=== PATIENT | female | born 1960 | race Caucasian/White ===

== ENCOUNTER 2017-03-13 10:25 | Inpatient (IN) | payer OTHER, MEDICAID ==
[~2017-03-13] VITALS: Ht 167.6 cm; Wt 73.0 kg
[2017-03-13] MEDS ORDERED: WARF5TAB71 (10:50)
[2017-03-13] MEDS ORDERED: DOCU-137 (10:50)
[2017-03-13] MEDS ORDERED: ALPR-140 (10:50)
[2017-03-13] MEDS ORDERED: LISI10TA6 (10:50)
[2017-03-13] MEDS ORDERED: WARF3TAB22 (10:50)
[2017-03-13] MEDS ORDERED: WARF7.5T20 (10:50)
[2017-03-13 11:30] LABS: Basophils # (auto) 0 uL; Basophils % (auto) 0.4 % (0.0-2.0); DEFINITIVE VIEW TRANSMISSION; Eosinophils # (auto) 0.2 uL; Eosinophils % (auto) 2.1 % (0.0-7.0); Hematocrit 30.7 % (36.0-46.0); Hemoglobin 9.9 g/dL (12.2-16.2); Lymphocytes # (auto) 1.1 uL; Mean Corpuscular Hemoglobin 26.6 pg (28.0-32.0); Mean Corpuscular Hgb Conc. 32.3 g/dL (32.0-36.0); Mean Corpuscular Volume 82.5 fL (80.0-100.0); Mean Platelet Volume 10.4 fL (7.4-10.4); Monocytes # (auto) 0.7 uL; Monocytes % (auto) 7.7 % (0.0-12.0); Neutrophils # (auto) 6.9 uL; Neutrophils % (auto) 77.8 % (37.0-80.0); Platelet Count (auto) 263 10^3/uL (140-450); Red Cell Distribution Width 17.1 % (11.6-16.0); White Blood Cell 8.9 10^3/uL (4.4-10.8)
[2017-03-13 11:44] LABS: Albumin 3.2 g/dL (3.4-5.0); Alkaline Phosphatase 111 U/L (45-117); Anion Gap 9 (5-15); Aspartate Aminotransferase 17 U/L (15-37); BUN/Creatinine Ratio 10.3; Bilirubin, Total 1.2 mg/dL (0.2-1.0); Blood Urea Nitrogen 11 mg/dL (7-18); Calcium 8.6 mg/dL (8.5-10.1); Carbon Dioxide 25 mmol/L (21-32); Chloride 107 mmol/L (98-107); GFR African American 68 mL/min; GFR Non-African American 57 mL/min; Glucose 322 mg/dL (74-106); Magnesium 1.9 mg/dL (1.6-2.6); Potassium 3.6 mmol/L (3.5-5.1); Sodium 141 mmol/L (136-145); Total Protein 6.7 g/dL (6.4-8.2)
[2017-03-13] MEDS ORDERED: SODIUM CHLORIDE 0.9% 1,000 ML IV ONE ×2 (13:00→14:30)
[2017-03-13] MEDS ORDERED: InsuLIN REG 1unit/0.01ml Soln (100units/ml) SC ONE (14:30)
[2017-03-13] MEDS ORDERED: ACETAMINOPHEN 500 MG TAB PO PRN (14:45)
[2017-03-13] MEDS ORDERED: LORazepam 0.5 MG TAB PO PRN (14:45)
[2017-03-13] MEDS ORDERED: LEVOFLOXACIN 500MG 100 ML IV ONE (14:45)
[2017-03-13] MEDS ORDERED: ALBUTEROL SULF 2.5 MG/0.5ML(0.5%) NEB SOLN NEB PRN (14:45)
[2017-03-13] MEDS ORDERED: LACTULOSE 20Gm/30ML SOLN PO PRN (14:45)
[2017-03-13] MEDS ORDERED: MORPHINE SULF INJ 2 MG/ML SYRINGE 1ML IV PRN (14:45)
[2017-03-13] MEDS ORDERED: NITROGLYCERIN 0.4 MG SL TAB SL PRN (14:45)
[2017-03-13] MEDS ORDERED: PROCHLORPERAZINE EDISYLATE 5 MG/ML 2ML VIAL IV PRN (14:45)
[2017-03-13] MEDS ORDERED: TEMAZEPAM 15 MG CAP PO PRN (14:45)
[2017-03-13] MEDS ORDERED: DEXTROSE (50%) 50ML SYRG IV PRN (14:45)
[2017-03-13 14:53] LABS: Urine Color Yellow (Yellow); Urine Hyaline Cast FEW /lpf (0 - 2); Urine Ketone Negative (Negative); Urine Mucus FEW (None Seen); Urine Nitrite Negative (Negative); Urine RBC 11 /hpf (0 - 4); Urine Squamous Epithelial Cell MOD /hpf (<5); Urine pH 6.5 (5.0-8.0)
[2017-03-13 15:06] LABS: Urine Glucose 4+ mg/dL (Normal)
[2017-03-13 15:07] LABS: Urine Bilirubin POSITIVE (Negative); Urine Blood 1+ /uL (Negative)
[2017-03-13] MEDS ORDERED: PANTOPRAZOLE 40 MG TAB PO ONE (15:30)
[2017-03-13] MEDS ORDERED: CARVEDILOL 3.125 MG TAB PO ONE (15:30)
[2017-03-13] MEDS ORDERED: POTASSIUM CHL 20 Meq TABLET PO ONE (15:30)
[2017-03-13] MEDS ORDERED: ENOXAPARIN SOD 40 MG/0.4 ML SYRINGE SC ONE (15:30)
[2017-03-13] MEDS ORDERED: ENALAPRIL MALEATE 2.5 MG TAB PO ONE (15:30)
[2017-03-13] MEDS ORDERED: ASPirin 81 mg TAB PO ONE (15:30)
[2017-03-13] MEDS ORDERED: NITROGLYCERIN 0.2MG/HR TOPICAL PATCH TD ONE (15:30)
[2017-03-13] MEDS ORDERED: FUROSEMIDE 40 MG/4 ML VIAL IV ONE (15:30)
[2017-03-13 15:44] LABS: Temperature: 23.4 C (20.0-25.0)
[2017-03-13 16:13] LABS: B-Type Natriuretic Peptide 1647.5 pg/mL (0-100); Temperature: 23.4 C (20.0-25.0)
[2017-03-13] MEDS: ACCU-CHEK COMFORT CURVE STRIP VI SCH ×2 (16:20→20:47)
[2017-03-13] MEDS: InsuLIN REG 1unit/0.01ml Soln (100units/ml) SC SCH ×2 (16:51→20:47)
[2017-03-13] MEDS: IPRATROPIUM BROM 0.5 MG/2.5ML INH SOL NEB SCH (18:15)
[2017-03-13] MEDS: ALBUTEROL SULF 2.5 MG/0.5ML(0.5%) NEB SOLN NEB SCH (18:15)
[2017-03-13] MEDS ORDERED: DOXYCYCLINE HYC 100MG/250ML 250 ML IV SCH (19:00)
[2017-03-13] MEDS ORDERED: cefTRIAXone 1GM/50ML D5W 50 ML IV ONE (19:00)
[2017-03-13 20:30] VITALS: BP 189/102
[2017-03-13] MEDS: DOXYCYCLINE HYC 100MG/250ML 250 ML IV SCH (20:46)
[2017-03-13] MEDS: CARVEDILOL 3.125 MG TAB PO SCH (21:53)
[2017-03-13] MEDS ORDERED: CLINDAMYCIN 600MG IV 50 ML IV SCH (22:00)
[2017-03-13] MEDS: ATORVASTATIN 20 MG TAB PO SCH (22:00)
[2017-03-13 22:31] LABS: INR 1.96 (0.9-1.15); Prothrombin Time 21.2 sec (9.37-12.3)
[2017-03-13] MEDS ORDERED: WARFARIN SODIUM 5 MG TAB PO ONE (22:45)
[2017-03-13] MEDS ORDERED: LABETALOL HCL 5 MG/ML ML 20ML VIAL IV ONE (23:33)
[2017-03-13] MEDS: LABETALOL HCL 5 MG/ML 4ML SYRINGE IV PRN (23:50)
[2017-03-14] VITALS (62 sets, daily range): BP systolic 87–230; BP diastolic 51–130
[2017-03-14] MEDS: IPRATROPIUM BROM 0.5 MG/2.5ML INH SOL NEB SCH ×4 (00:05→18:47)
[2017-03-14] MEDS: ALBUTEROL SULF 2.5 MG/0.5ML(0.5%) NEB SOLN NEB SCH ×4 (00:05→18:47)
[2017-03-14] MEDS: ACCU-CHEK COMFORT CURVE STRIP VI SCH ×6 (00:38→20:00)
[2017-03-14] MEDS: InsuLIN REG 1unit/0.01ml Soln (100units/ml) SC SCH ×6 (00:38→20:00)
[2017-03-14] MEDS ORDERED: ENALAPRILAT 1.25 MG/ML-1ML VIAL IV ONE ×2 (02:44→02:45)
[2017-03-14] MEDS ORDERED: FUROSEMIDE 40 MG/4 ML VIAL IV ONE ×3 (02:45→12:45)
[2017-03-14] MEDS ORDERED: FUROSEMIDE 40 MG/4 ML VIAL ONE ×2 (02:45→04:13)
[2017-03-14] MEDS: NITROGLYCERIN 50MG/250ML 250 ML IV SCH ×4 (03:50→17:58)
[2017-03-14] MEDS: LABETALOL HCL 5 MG/ML 4ML SYRINGE IV PRN (04:04)
[2017-03-14] MEDS: DOXYCYCLINE HYC 100MG/250ML 250 ML IV SCH (08:24)
[2017-03-14] MEDS ORDERED: cefTRIAXone 1GM/50ML D5W 50 ML IV SCH (09:00)
[2017-03-14 09:04] LABS: DEFINITIVE VIEW TRANSMISSION; Hematocrit 39.6 % (36.0-46.0); Hemoglobin 12.7 g/dL (12.2-16.2); Mean Corpuscular Hemoglobin 26.6 pg (28.0-32.0); Mean Corpuscular Hgb Conc. 32.1 g/dL (32.0-36.0); Mean Corpuscular Volume 82.9 fL (80.0-100.0); Mean Platelet Volume 10.4 fL (7.4-10.4); Platelet Count (auto) 423 10^3/uL (140-450); Red Cell Distribution Width 17.1 % (11.6-16.0); SUSPECT VIEW TRANSMISSION; White Blood Cell 25.9 10^3/uL (4.4-10.8)
[2017-03-14 09:09] LABS: Metamyelocytes % 0; Myelocytes % 0; Promyelocytes % 0; Reactive Lymphocytes 0
[2017-03-14 09:19] LABS: INR 2.67 (0.9-1.15); Prothrombin Time 28.8 sec (9.37-12.3)
[2017-03-14 09:35] LABS: Albumin 3.1 g/dL (3.4-5.0); Calcium 8.4 mg/dL (8.5-10.1); Potassium 3.5 mmol/L (3.5-5.1)
[2017-03-14 09:51] LABS: Bilirubin, Total 0.9 mg/dL (0.2-1.0); Total Protein 7.5 g/dL (6.4-8.2)
[2017-03-14] MEDS: ASPirin 81 mg TAB PO SCH (10:00)
[2017-03-14] MEDS ORDERED: ENOXAPARIN SOD 40 MG/0.4 ML SYRINGE SC SCH (10:00)
[2017-03-14] MEDS: PANTOPRAZOLE 40 MG TAB PO SCH (10:00)
[2017-03-14] MEDS ORDERED: FUROSEMIDE 40 MG/4 ML VIAL IV SCH (10:00)
[2017-03-14] MEDS: ENALAPRIL MALEATE 10 MG TAB PO SCH ×2 (10:00→22:00)
[2017-03-14] MEDS: CARVEDILOL 3.125 MG TAB PO SCH ×2 (10:00→22:00)
[2017-03-14] MEDS ORDERED: LEVOFLOXACIN 500MG 100 ML IV SCH (10:00)
[2017-03-14] MEDS ORDERED: ENALAPRIL MALEATE 2.5 MG TAB PO SCH (10:00)
[2017-03-14] MEDS ORDERED: InsuLIN REG 1unit/0.01ml Soln (100units/ml) SC SCH (10:00)
[2017-03-14] MEDS: POTASSIUM CHL 20 Meq TABLET PO SCH (10:00)
[2017-03-14 10:23] LABS: Anisocytosis Slight; Hypochromia Slight; Platelet Estimate Adequate; Schistocytes FEW
[2017-03-14] MEDS: NITROGLYCERIN 0.2MG/HR TOPICAL PATCH TD SCH (10:46)
[2017-03-14] MEDS: PIPERACILLIN-TAZOB 3.375GM 100 ML IV SCH ×2 (12:24→17:55)
[2017-03-14 13:54] LABS: Lactic Acid w/Reflex 2.1 mmol/L (0.4-2.0)
[2017-03-14 14:20] LABS: REFLEX LACTIC ACID YES OR NO YES
[2017-03-14] MEDS ORDERED: WARFARIN SODIUM 1 MG TAB PO ONE (17:00)
[2017-03-14] MEDS: FUROSEMIDE 20 MG/2 ML VIAL IV SCH (17:54)
[2017-03-14] MEDS: LABETALOL HCL 5 MG/ML 4ML SYRINGE IV SCH (18:00)
[2017-03-14] MEDS: hydrALAZINE HCL 20 MG/ML VL IV SCH (18:00)
[2017-03-14] MEDS: ATORVASTATIN 20 MG TAB PO SCH (22:00)
[2017-03-14] MEDS: LINEZOLID 600MG/300ML 300 ML IV SCH (23:40)
[2017-03-15] VITALS (85 sets, daily range): BP systolic 77–152; BP diastolic 32–90
[2017-03-15] MEDS: ALBUTEROL SULF 2.5 MG/0.5ML(0.5%) NEB SOLN NEB SCH ×4 (00:09→21:50)
[2017-03-15] MEDS: IPRATROPIUM BROM 0.5 MG/2.5ML INH SOL NEB SCH ×4 (00:09→21:50)
[2017-03-15] MEDS: LABETALOL HCL 5 MG/ML 4ML SYRINGE IV SCH ×4 (00:23→18:35)
[2017-03-15] MEDS: ACCU-CHEK COMFORT CURVE STRIP VI SCH ×6 (00:23→20:06)
[2017-03-15] MEDS: InsuLIN REG 1unit/0.01ml Soln (100units/ml) SC SCH ×6 (00:23→20:07)
[2017-03-15] MEDS: PIPERACILLIN-TAZOB 3.375GM 100 ML IV SCH ×4 (02:00→19:53)
[2017-03-15] MEDS: hydrALAZINE HCL 20 MG/ML VL IV SCH ×4 (02:00→18:36)
[2017-03-15 04:03] LABS: Basophils # (auto) 0 uL; DEFINITIVE VIEW TRANSMISSION; Eosinophils # (auto) 0 uL; Hematocrit 35.8 % (36.0-46.0); Hemoglobin 11.7 g/dL (12.2-16.2); Lymphocytes # (auto) 1.1 uL; Lymphocytes % (auto) 5.6 % (10.0-50.0); Mean Corpuscular Hemoglobin 26.6 pg (28.0-32.0); Mean Corpuscular Hgb Conc. 32.7 g/dL (32.0-36.0); Mean Corpuscular Volume 81.3 fL (80.0-100.0); Mean Platelet Volume 10.2 fL (7.4-10.4); Monocytes # (auto) 1.2 uL; Monocytes % (auto) 6.1 % (0.0-12.0); Neutrophils # (auto) 16.7 uL; Neutrophils % (auto) 88.3 % (37.0-80.0); Platelet Count (auto) 329 10^3/uL (140-450); Red Cell Distribution Width 17.5 % (11.6-16.0); SUSPECT VIEW TRANSMISSION; White Blood Cell 18.9 10^3/uL (4.4-10.8)
[2017-03-15 04:17] LABS: Magnesium 1.3 mg/dL (1.6-2.6)
[2017-03-15 04:21] LABS: Albumin 2.8 g/dL (3.4-5.0); BUN/Creatinine Ratio 15.1; Total Protein 6.5 g/dL (6.4-8.2)
[2017-03-15 04:33] LABS: Partial Thromboplastin Time 36.4 sec (22.64-33.71)
[2017-03-15 04:34] LABS: INR 2.29 (0.9-1.15); Prothrombin Time 24.7 sec (9.37-12.3)
[2017-03-15] MEDS: MAGNESIUM SULFATE 1GM/100ML 100 ML IV SCH ×3 (06:34→10:00)
[2017-03-15] MEDS: POTASSIUM CHL 20MEQ/100ML 100 ML IV SCH ×2 (06:34→08:31)
[2017-03-15] MEDS: FUROSEMIDE 20 MG/2 ML VIAL IV SCH ×2 (06:35→18:25)
[2017-03-15] MEDS: PANTOPRAZOLE 40 MG TAB PO SCH (10:00)
[2017-03-15] MEDS ORDERED: PHENYTOIN IV DILANTIN 1,000 MG in SODIUM CHL 0.9% 250 ML IV ONE (10:00)
[2017-03-15] MEDS: POTASSIUM CHL 20 Meq TABLET PO SCH (10:00)
[2017-03-15] MEDS: ASPirin 81 mg TAB PO SCH (10:00)
[2017-03-15] MEDS: ENALAPRIL MALEATE 10 MG TAB PO SCH (10:00)
[2017-03-15] MEDS: CARVEDILOL 3.125 MG TAB PO SCH ×2 (10:00→22:00)
[2017-03-15] MEDS: NITROGLYCERIN 0.2MG/HR TOPICAL PATCH TD SCH (11:28)
[2017-03-15] MEDS: LINEZOLID 600MG/300ML 300 ML IV SCH ×2 (11:30→22:58)
[2017-03-15] MEDS ORDERED: PANTOPRAZOLE SODIUM 40 MG/10 ML VIAL IV ONE (12:30)
[2017-03-15] MEDS ORDERED: FLUCONAZOLE 200MG/100ML 100 ML IV ONE (12:30)
[2017-03-15] MEDS ORDERED: PHENYTOIN SODIUM 50 MG/ML 2ML VIAL IV SCH (14:00)
[2017-03-15] MEDS ORDERED: WARFARIN SODIUM 1 MG TAB PO ONE (17:00)
[2017-03-15 17:39] LABS: Magnesium 2.6 mg/dL (1.6-2.6); Potassium 3.2 mmol/L (3.5-5.1)
[2017-03-15] MEDS: Boost Glucose Control 8 Ounces PO SCH (18:00)
[2017-03-15] MEDS: PHENYTOIN SODIUM 50 MG/ML 2ML VIAL IV SCH (19:53)
[2017-03-15] MEDS: ATORVASTATIN 20 MG TAB PO SCH (22:00)
[2017-03-16] VITALS (29 sets, daily range): BP systolic 104–147; BP diastolic 41–99
[2017-03-16] MEDS: LABETALOL HCL 5 MG/ML 4ML SYRINGE IV SCH ×6 (00:13→17:54)
[2017-03-16] MEDS: ACCU-CHEK COMFORT CURVE STRIP VI SCH ×6 (00:13→22:07)
[2017-03-16] MEDS: hydrALAZINE HCL 20 MG/ML VL IV SCH ×4 (00:13→17:54)
[2017-03-16] MEDS: InsuLIN REG 1unit/0.01ml Soln (100units/ml) SC SCH ×6 (00:14→21:34)
[2017-03-16] MEDS: PIPERACILLIN-TAZOB 3.375GM 100 ML IV SCH ×3 (01:15→11:36)
[2017-03-16] MEDS: ALBUTEROL SULF 2.5 MG/0.5ML(0.5%) NEB SOLN NEB SCH ×4 (01:17→19:16)
[2017-03-16] MEDS: IPRATROPIUM BROM 0.5 MG/2.5ML INH SOL NEB SCH ×4 (01:17→19:16)
[2017-03-16] MEDS: NITROGLYCERIN 50MG/250ML 250 ML IV SCH (02:45)
[2017-03-16] MEDS: PHENYTOIN SODIUM 50 MG/ML 2ML VIAL IV SCH ×3 (03:44→20:00)
[2017-03-16 04:31] LABS: Basophils # (auto) 0 uL; Basophils % (auto) 0.1 % (0.0-2.0); Eosinophils # (auto) 0 uL; Eosinophils % (auto) 0.1 % (0.0-7.0); Hemoglobin 11.6 g/dL (12.2-16.2); Lymphocytes # (auto) 1.2 uL; Lymphocytes % (auto) 6.5 % (10.0-50.0); Mean Corpuscular Hemoglobin 27.2 pg (28.0-32.0); Mean Corpuscular Hgb Conc. 33.2 g/dL (32.0-36.0); Mean Corpuscular Volume 81.9 fL (80.0-100.0); Mean Platelet Volume 10.8 fL (7.4-10.4); Monocytes # (auto) 1.5 uL; Monocytes % (auto) 8.1 % (0.0-12.0); Neutrophils # (auto) 16.2 uL; Neutrophils % (auto) 85.2 % (37.0-80.0); Platelet Count (auto) 332 10^3/uL (140-450); Red Cell Distribution Width 17.7 % (11.6-16.0); SUSPECT VIEW TRANSMISSION
[2017-03-16 04:34] LABS: Albumin 2.6 g/dL (3.4-5.0); BUN/Creatinine Ratio 14.5; Bilirubin, Total 0.7 mg/dL (0.2-1.0); Calcium 8.1 mg/dL (8.5-10.1); Magnesium 2.3 mg/dL (1.6-2.6); Total Protein 6.3 g/dL (6.4-8.2)
[2017-03-16 04:38] LABS: Potassium 2.4 mmol/L (3.5-5.1)
[2017-03-16 04:44] LABS: INR 2.55 (0.9-1.15); Prothrombin Time 27.5 sec (9.37-12.3)
[2017-03-16] MEDS: FUROSEMIDE 20 MG/2 ML VIAL IV SCH (05:10)
[2017-03-16] MEDS: POTASSIUM CHL 20MEQ/100ML 100 ML IV SCH ×3 (06:00→09:55)
[2017-03-16] MEDS: Boost Glucose Control 8 Ounces PO SCH ×2 (08:00→17:59)
[2017-03-16] MEDS ORDERED: InsuLIN REG 1unit/0.01ml Soln (100units/ml) ONE (08:00)
[2017-03-16] MEDS ORDERED: DEXTROSE (50%) 50ML SYRG IV PRN (09:15)
[2017-03-16] MEDS: PANTOPRAZOLE SODIUM 40 MG/10 ML VIAL IV SCH (09:55)
[2017-03-16] MEDS: LINEZOLID 600MG/300ML 300 ML IV SCH ×2 (09:55→21:23)
[2017-03-16] MEDS: FLUCONAZOLE 200MG/100ML 100 ML IV SCH (09:55)
[2017-03-16] MEDS: CARVEDILOL 3.125 MG TAB PO SCH ×2 (10:00→22:00)
[2017-03-16] MEDS: ASPirin 81 mg TAB PO SCH (10:00)
[2017-03-16] MEDS: NITROGLYCERIN 0.2MG/HR TOPICAL PATCH TD SCH (10:07)
[2017-03-16] MEDS: D5W/SOD CHL 0.45%/KCL 20MEQ 1,000 ML IV SCH (16:54)
[2017-03-16] MEDS: PIPERACILLIN-TAZOB 2.25GM 50 ML IV SCH (18:21)
[2017-03-16 19:11] LABS: Acetaminophen < 2.0 ug/mL (10-30); Salicylate 1.9 mg/dL (2.8-20.0)
[2017-03-16] MEDS: ATORVASTATIN 20 MG TAB PO SCH (22:00)
[2017-03-17] VITALS (17 sets, daily range): BP systolic 109–153; BP diastolic 52–78
[2017-03-17] MEDS: hydrALAZINE HCL 20 MG/ML VL IV SCH ×4 (00:12→18:30)
[2017-03-17] MEDS: LABETALOL HCL 5 MG/ML 4ML SYRINGE IV SCH ×4 (00:13→18:29)
[2017-03-17] MEDS: PIPERACILLIN-TAZOB 2.25GM 50 ML IV SCH ×4 (00:13→18:31)
[2017-03-17] MEDS: ALBUTEROL SULF 2.5 MG/0.5ML(0.5%) NEB SOLN NEB SCH ×4 (00:52→18:52)
[2017-03-17] MEDS: IPRATROPIUM BROM 0.5 MG/2.5ML INH SOL NEB SCH ×4 (00:52→18:53)
[2017-03-17] MEDS: PHENYTOIN SODIUM 50 MG/ML 2ML VIAL IV SCH ×3 (04:00→20:15)
[2017-03-17 04:25] LABS: BUN/Creatinine Ratio 12.2; Basophils # (auto) 0 uL; Eosinophils # (auto) 0.2 uL; Eosinophils % (auto) 1.3 % (0.0-7.0); Hematocrit 35.9 % (36.0-46.0); Hemoglobin 11.7 g/dL (12.2-16.2); Lymphocytes # (auto) 1.3 uL; Lymphocytes % (auto) 9.8 % (10.0-50.0); Mean Corpuscular Hgb Conc. 32.5 g/dL (32.0-36.0); Mean Corpuscular Volume 83.2 fL (80.0-100.0); Mean Platelet Volume 10.6 fL (7.4-10.4); Monocytes # (auto) 1.4 uL; Monocytes % (auto) 10.6 % (0.0-12.0); Neutrophils # (auto) 10.5 uL; Neutrophils % (auto) 78.3 % (37.0-80.0); Phosphorus 2.1 mg/dL (2.5-4.90); Platelet Count (auto) 283 10^3/uL (140-450); Potassium 3.2 mmol/L (3.5-5.1); Red Cell Distribution Width 18.2 % (11.6-16.0); White Blood Cell 13.4 10^3/uL (4.4-10.8)
[2017-03-17 04:31] LABS: Partial Thromboplastin Time 35.8 sec (22.64-33.71)
[2017-03-17 04:50] LABS: INR 4.31 (0.9-1.15); Prothrombin Time 46.5 sec (9.37-12.3)
[2017-03-17] MEDS: D5W/SOD CHL 0.45%/KCL 20MEQ 1,000 ML IV SCH ×2 (04:58→16:45)
[2017-03-17] MEDS: ACCU-CHEK COMFORT CURVE STRIP VI SCH ×4 (06:48→22:49)
[2017-03-17] MEDS: InsuLIN REG 1unit/0.01ml Soln (100units/ml) SC SCH ×4 (06:48→22:53)
[2017-03-17] MEDS: Boost Glucose Control 8 Ounces PO SCH ×2 (08:00→18:00)
[2017-03-17] MEDS ORDERED: POTASSIUM PHOSPHATE 44 MEQ in SODIUM CHL 0.9% 250 ML IV ONE (10:00)
[2017-03-17] MEDS: PANTOPRAZOLE SODIUM 40 MG/10 ML VIAL IV SCH (10:26)
[2017-03-17] MEDS: NITROGLYCERIN 0.2MG/HR TOPICAL PATCH TD SCH (10:27)
[2017-03-17] MEDS: FLUCONAZOLE 200MG/100ML 100 ML IV SCH (10:27)
[2017-03-17] MEDS: ASPirin 81 mg TAB PO SCH (10:33)
[2017-03-17] MEDS: CARVEDILOL 3.125 MG TAB PO SCH ×2 (10:34→22:48)
[2017-03-17] MEDS ORDERED: SODIUM CHL 0.9% IV ONE (11:15)
[2017-03-17] MEDS ORDERED: POTASSIUM CHLORIDE 40 MEQ, LIDOCAINE 1% (LOCAL ANESTH.) 4 ML in SODIUM CHL 0.9% 250 ML IV ONE (11:15)
[2017-03-17] MEDS ORDERED: SODIUM PHOSPHATES IV ONE (11:15)
[2017-03-17] MEDS: LINEZOLID 600MG/300ML 300 ML IV SCH ×2 (11:36→22:48)
[2017-03-17] MEDS ORDERED: DEXTROSE (50%) 50ML SYRG IV PRN (15:15)
[2017-03-17] MEDS: ALBUMIN 25% 100 ML IV SCH ×2 (16:23→21:01)
[2017-03-17] MEDS: HYDROcodone-ACET 5/325MG TAB PO PRN (18:38)
[2017-03-17] MEDS: ATORVASTATIN 20 MG TAB PO SCH (22:49)
[2017-03-18] MEDS: LABETALOL HCL 5 MG/ML 4ML SYRINGE IV SCH ×3 (00:21→12:25)
[2017-03-18] MEDS: hydrALAZINE HCL 20 MG/ML VL IV SCH ×3 (00:22→12:25)
[2017-03-18] MEDS: PIPERACILLIN-TAZOB 2.25GM 50 ML IV SCH ×2 (01:02→06:26)
[2017-03-18] MEDS: HYDROcodone-ACET 5/325MG TAB PO PRN ×3 (01:03→16:41)
[2017-03-18 01:19] VITALS: BP 153/78
[2017-03-18] MEDS: D5W/SOD CHL 0.45%/KCL 20MEQ 1,000 ML IV SCH (03:44)
[2017-03-18] MEDS: PHENYTOIN SODIUM 50 MG/ML 2ML VIAL IV SCH (04:20)
[2017-03-18] MEDS: ALBUMIN 25% 100 ML IV SCH (05:00)
[2017-03-18 05:21] LABS: Basophils # (auto) 0 uL; Basophils % (auto) 0.5 % (0.0-2.0); DEFINITIVE VIEW TRANSMISSION; Eosinophils # (auto) 0.5 uL; Eosinophils % (auto) 5.5 % (0.0-7.0); Hematocrit 32.3 % (36.0-46.0); Hemoglobin 10.4 g/dL (12.2-16.2); Lymphocytes # (auto) 1.5 uL; Lymphocytes % (auto) 16.1 % (10.0-50.0); Mean Corpuscular Hemoglobin 26.8 pg (28.0-32.0); Mean Corpuscular Hgb Conc. 32.4 g/dL (32.0-36.0); Mean Corpuscular Volume 82.8 fL (80.0-100.0); Mean Platelet Volume 10.5 fL (7.4-10.4); Monocytes % (auto) 11.1 % (0.0-12.0); Neutrophils # (auto) 6.1 uL; Neutrophils % (auto) 66.8 % (37.0-80.0); Platelet Count (auto) 273 10^3/uL (140-450); Red Cell Distribution Width 17.7 % (11.6-16.0); White Blood Cell 9.2 10^3/uL (4.4-10.8)
[2017-03-18 05:33] VITALS: BP 144/75
[2017-03-18 05:37] LABS: Partial Thromboplastin Time 39.7 sec (22.64-33.71)
[2017-03-18 05:39] LABS: BUN/Creatinine Ratio 11.7; Calcium 7.9 mg/dL (8.5-10.1); Potassium 3.7 mmol/L (3.5-5.1)
[2017-03-18 05:41] LABS: INR 3.96 (0.9-1.15); Prothrombin Time 42.8 sec (9.37-12.3)
[2017-03-18] MEDS: ACCU-CHEK COMFORT CURVE STRIP VI SCH ×4 (06:27→21:55)
[2017-03-18] MEDS: InsuLIN REG 1unit/0.01ml Soln (100units/ml) SC SCH ×4 (06:40→21:56)
[2017-03-18] MEDS: ALBUTEROL SULF 2.5 MG/0.5ML(0.5%) NEB SOLN NEB SCH ×4 (06:52→18:00)
[2017-03-18] MEDS: IPRATROPIUM BROM 0.5 MG/2.5ML INH SOL NEB SCH ×4 (06:52→18:00)
[2017-03-18] MEDS: Boost Glucose Control 8 Ounces PO SCH ×2 (08:00→18:10)
[2017-03-18 09:00] VITALS: BP 146/77
[2017-03-18] MEDS: FLUCONAZOLE 200MG/100ML 100 ML IV SCH (09:00)
[2017-03-18] MEDS: PANTOPRAZOLE SODIUM 40 MG/10 ML VIAL IV SCH (10:00)
[2017-03-18] MEDS: LINEZOLID 600MG/300ML 300 ML IV SCH (10:35)
[2017-03-18] MEDS: NITROGLYCERIN 0.2MG/HR TOPICAL PATCH TD SCH (10:35)
[2017-03-18] MEDS: ASPirin 81 mg TAB PO SCH (10:35)
[2017-03-18] MEDS: CARVEDILOL 3.125 MG TAB PO SCH ×2 (10:36→21:54)
[2017-03-18] MEDS ORDERED: hydrALAZINE HCL 25 MG TAB PO PRN (12:30)
[2017-03-18] MEDS ORDERED: FLUCONAZOLE 100 MG TAB PO ONE (12:30)
[2017-03-18] MEDS ORDERED: CARVEDILOL 3.125 MG TAB PO ONE (12:30)
[2017-03-18] MEDS: ONDANSETRON HCL 4 MG/2 ML VIAL IV PRN ×2 (12:58→20:19)
[2017-03-18 14:24] VITALS: BP 157/72
[2017-03-18 17:47] VITALS: BP 136/76
[2017-03-18] MEDS ORDERED: hydrALAZINE HCL 25 MG TAB PO SCH (18:00)
[2017-03-18] MEDS: MORPHINE SULF INJ 2 MG/ML SYRINGE 1ML IV PRN (21:10)
[2017-03-18] MEDS: hydrALAZINE HCL 25 MG TAB PO SCH (21:52)
[2017-03-18] MEDS: ATORVASTATIN 20 MG TAB PO SCH (21:54)
[2017-03-18] MEDS: LABETALOL HCL 200 MG TAB PO SCH (21:55)
[2017-03-18] MEDS ORDERED: PHENYTOIN SODIUM 100 MG CAP PO SCH (22:00)
[2017-03-19] MEDS: InsuLIN REG 1unit/0.01ml Soln (100units/ml) SC SCH ×3 (05:37→17:00)
[2017-03-19] MEDS: ACCU-CHEK COMFORT CURVE STRIP VI SCH ×3 (05:38→17:00)
[2017-03-19 06:47] LABS: Basophils # (auto) 0 uL; Basophils % (auto) 0.4 % (0.0-2.0); DEFINITIVE VIEW TRANSMISSION; Eosinophils # (auto) 0.7 uL; Eosinophils % (auto) 9.8 % (0.0-7.0); Hematocrit 32.4 % (36.0-46.0); Hemoglobin 10.5 g/dL (12.2-16.2); Lymphocytes # (auto) 1.3 uL; Lymphocytes % (auto) 17.5 % (10.0-50.0); Mean Corpuscular Hemoglobin 26.7 pg (28.0-32.0); Mean Corpuscular Hgb Conc. 32.3 g/dL (32.0-36.0); Mean Corpuscular Volume 82.6 fL (80.0-100.0); Mean Platelet Volume 10.7 fL (7.4-10.4); Monocytes # (auto) 0.7 uL; Neutrophils # (auto) 4.8 uL; Neutrophils % (auto) 63.3 % (37.0-80.0); Platelet Count (auto) 272 10^3/uL (140-450); Red Cell Distribution Width 18.1 % (11.6-16.0); White Blood Cell 7.6 10^3/uL (4.4-10.8)
[2017-03-19] MEDS: IPRATROPIUM BROM 0.5 MG/2.5ML INH SOL NEB SCH ×3 (06:49→12:00)
[2017-03-19] MEDS: ALBUTEROL SULF 2.5 MG/0.5ML(0.5%) NEB SOLN NEB SCH ×3 (06:49→12:00)
[2017-03-19 07:01] LABS: Partial Thromboplastin Time 33.3 sec (22.64-33.71)
[2017-03-19 07:03] LABS: INR 2.3 (0.9-1.15); Prothrombin Time 24.8 sec (9.37-12.3)
[2017-03-19 07:20] LABS: Bilirubin, Total 0.6 mg/dL (0.2-1.0); Calcium 8.4 mg/dL (8.5-10.1); Potassium 3.6 mmol/L (3.5-5.1); Total Protein 5.9 g/dL (6.4-8.2)
[2017-03-19] MEDS: Boost Glucose Control 8 Ounces PO SCH (08:08)
[2017-03-19] MEDS: MORPHINE SULF INJ 2 MG/ML SYRINGE 1ML IV PRN ×2 (08:40→10:03)
[2017-03-19] MEDS ORDERED: LORazepam 2MG/ML-1ML VIAL IV PRN (09:00)
[2017-03-19 09:12] VITALS: BP 157/70
[2017-03-19] MEDS ORDERED: FLUCONAZOLE 100 MG TAB PO SCH (10:00)
[2017-03-19] MEDS: ASPirin 81 mg TAB PO SCH (10:14)
[2017-03-19] MEDS: hydrALAZINE HCL 25 MG TAB PO SCH (10:14)
[2017-03-19] MEDS: LABETALOL HCL 200 MG TAB PO SCH (10:15)
[2017-03-19] MEDS: CARVEDILOL 3.125 MG TAB PO SCH (10:15)
[2017-03-19] MEDS: HYDROcodone-ACET 5/325MG TAB PO PRN (10:54)
[2017-03-19] MEDS ORDERED: FLUC100T34 PO (12:35)
[2017-03-19] MEDS ORDERED: PHE100C PO (12:35)
[2017-03-19] MEDS ORDERED: CARV6.25 PO (12:35)
[2017-03-19] MEDS ORDERED: ATOR20TA50 PO (12:35)
[2017-03-19] MEDS ORDERED: ASPI81CH43 PO (12:35)
[2017-03-19 12:43] VITALS: BP 137/67
[2017-03-19] MEDS ORDERED: NOR5T PO (13:17)
[2017-03-19] MEDS ORDERED: MET25T PO (13:17)
[2017-03-19] MEDS ORDERED: MORP15TA PO (13:17)
[2017-03-19] MEDS ORDERED: POTA10TA51 PO (13:17)
[2017-03-19] MEDS ORDERED: GABA-494 PO (13:17)
[2017-03-19] MEDS ORDERED: INSDRIP SUBCUT (13:17)
[2017-03-19] MEDS ORDERED: OME20T PO (13:17)
[2017-03-19] MEDS ORDERED: ATOR10TA PO (13:17)
[2017-03-19] MEDS ORDERED: INSUINJ37 SUBCUT (13:20)
[2017-03-19] MEDS ORDERED: LAB200T PO (13:20)
[2017-03-19] MEDS ORDERED: HYDR-2651 PO (13:20)
[2017-03-19] MEDS ORDERED: WARF2TAB49 PO (13:27)
[2017-03-19 16:05] VITALS: BP 137/67
[2017-03-19] MEDS ORDERED: WARFARIN SODIUM 1 MG TAB PO ONE (17:00)
[2017-03-21 08:07] LABS: Vitamin D-2 25-Hydroxy 3.5 ng/mL (.)
== END 2017-03-19 16:55 | disposition home health service (06) | DRG 871 ==
LOC: ER 10:25 → EDBD 10:25 → TELE 10:26 → TELE-WESTW 19:58 → ICU WEST 03-14 03:30 → TELE-WESTW 03-17 16:45
PROVIDERS: ADMIT Internal Medicine; ATTEND Internal Medicine
PROC: 5A09457 Assistance with Respiratory Ventilation, 24-96 Consecutive Hours, Continuous Positive Airway Pressure (ICD-10-PCS; 2017-03-14)
PROC: 4A10X4Z Monitoring of Central Nervous Electrical Activity, External Approach (ICD-10-PCS; principal; 2017-03-16)
DX: A41.9 Sepsis, unspecified organism (principal); G93.41 Metabolic encephalopathy; N17.0 Acute kidney failure with tubular necrosis; I21.4 Non-ST elevation (NSTEMI) myocardial infarction; I50.43 Acute on chronic combined systolic (congestive) and diastolic (congestive) heart failure; N39.0 Urinary tract infection, site not specified; R47.01 Aphasia; I13.0 Hypertensive heart and chronic kidney disease with heart failure and stage 1 through stage 4 chronic kidney disease, or unspecified chronic kidney disease; F05 Delirium due to known physiological condition; F11.20 Opioid dependence, uncomplicated; E11.65 Type 2 diabetes mellitus with hyperglycemia; E11.21 Type 2 diabetes mellitus with diabetic nephropathy; E11.22 Type 2 diabetes mellitus with diabetic chronic kidney disease; D63.8 Anemia in other chronic diseases classified elsewhere; E83.39 Other disorders of phosphorus metabolism; E86.0 Dehydration; E87.5 Hyperkalemia; E87.6 Hypokalemia; F17.210 Nicotine dependence, cigarettes, uncomplicated; G40.409 Other generalized epilepsy and epileptic syndromes, not intractable, without status epilepticus; G89.4 Chronic pain syndrome; M54.5 Low back pain; G93.89 Other specified disorders of brain; I16.0 Hypertensive urgency; I25.10 Atherosclerotic heart disease of native coronary artery without angina pectoris; I35.0 Nonrheumatic aortic (valve) stenosis; F41.9 Anxiety disorder, unspecified; I67.2 Cerebral atherosclerosis; N18.9 Chronic kidney disease, unspecified; Z79.01 Long term (current) use of anticoagulants; Z95.1 Presence of aortocoronary bypass graft; Z95.2 Presence of prosthetic heart valve; Z88.1 Allergy status to other antibiotic agents; Z90.49 Acquired absence of other specified parts of digestive tract; Z79.899 Other long term (current) drug therapy; Z79.82 Long term (current) use of aspirin; Z71.3 Dietary counseling and surveillance
CPT/HCPCS: 36415; 36600; 70450; 71010; 76775; 80048; 80053; 80061; 80185; 80307; 80320; 80329; 81001; 82040; 82140; 82306; 82550; 82570; 82607; 82746; 82805; 82962; 83036; 83605; 83735; 83880; 83970; 84100; 84132; 84156; 84300; 84443; 84484; 85007; 85025; 85027; 85610; 85652; 85730; 86141; 86160; 87040; 87081; 87086; 93005; 93306; 93886; 94640; 94660; 95819; 96360; 96361; 96372; 97001; 97110; 97530; C9113; J0696; J1450; J1815; J1956; J2001; J2405; J2543; J3480; J3490

== ENCOUNTER 2020-06-17 10:12 | Day surgery (SDC) | payer OTHER, MEDICAID ==
[~2020-06-17] VITALS: Ht 167.6 cm; Wt 72.6 kg
[~2020-06-17 10:12] MED LIST: AMLO5TAB15 PO; ATOR40TA52 PO; CLOB0.055 TOP; GABA100C9 PO; HYDR-4296 PO; HYDR-531 PO; HYDR25TA4 PO; INSU1INJ19 SC; METO-159 PO; MORP10CA10 PO; OMEP20TA PO; PHE100C PO; WARF6TAB21 PO
[2020-06-17 11:55] LABS: INR 1.03 (0.9-1.15); Partial Thromboplastin Time 27.7 sec (23.0-31.2)
[2020-06-17] MEDS ORDERED: LORazepam 2MG/ML-1ML VIAL IM ONE (13:45)
[2020-06-17] MEDS ORDERED: IODIXANOL 320MG/ML 100ML BTL IV ONE (14:06)
[2020-06-17] MEDS ORDERED: LIDOCAINE 2%HCL (LOCAL ANESTH.) INJ 20ML MDV ONE (14:06)
[2020-06-17] MEDS ORDERED: ANGIOMAX 250 MG VIAL IV ONE (14:07)
[2020-06-17] MEDS ORDERED: fentaNYL CITRATE 100 MCG/2 ML VL ONE (14:08)
[2020-06-17] MEDS ORDERED: MIDAZOLAM HCL 1MG/1ML-2 ML VIAL ONE (14:08)
[2020-06-17] MEDS ORDERED: SODIUM CHL 0.9% 50 ML ONE (14:08)
[2020-06-17] MEDS ORDERED: HYDROcodone-ACET 5/325MG TAB PO PRN (15:45)
[2020-06-17] MEDS ORDERED: ACETAMINOPHEN 500 MG TAB PO PRN (15:45)
[2020-06-17] MEDS ORDERED: ONDANSETRON HCL 4 MG/2 ML VIAL IV PRN (15:45)
== END 2020-06-17 17:07 | disposition home or self-care (01) ==
LOC: CATH 10:12
PROVIDERS: ATTEND Internal Medicine
DX: I70.211 Atherosclerosis of native arteries of extremities with intermittent claudication, right leg (principal); I25.810 Atherosclerosis of coronary artery bypass graft(s) without angina pectoris; J44.9 Chronic obstructive pulmonary disease, unspecified; F41.9 Anxiety disorder, unspecified; I10 Essential (primary) hypertension; E78.5 Hyperlipidemia, unspecified; I25.2 Old myocardial infarction; I25.10 Atherosclerotic heart disease of native coronary artery without angina pectoris; Z88.1 Allergy status to other antibiotic agents; Z79.899 Other long term (current) drug therapy; Z11.59 Encounter for screening for other viral diseases
CPT/HCPCS: 36247; 36415; 75716; 85610; 85730; C1760; C1769; C1894; J0583; J1644; J2060; J2250; J3010; J7030; Q9967; U0003